=== PATIENT | female | born 1995 | race Caucasian/White ===

== ENCOUNTER 2018-03-10 17:05 | Emergency (ER) | payer OTHER ==
[~2018-03-10] VITALS: Ht 167.6 cm; Wt 88.9 kg
[2018-03-10 17:10] VITALS: BP 130/73
[2018-03-10] MEDS ORDERED: KETOROLAC 60 MG/2 ML INJ. IM ONE (17:15)
[2018-03-10] MEDS ORDERED: MELO7.5T5 PO (17:55)
--- NOTE | 2018-03-10 17:56 | PHYS DOC ---
Past Medical History Past Medical History: Arthritis Past Surgical History: No Surgical History Alcohol Use: None Drug Use: None Adult General Chief Complaint Chief Complaint: BACK PAIN - NO INJURY [facility] HPI Patient is a 23 year old female who presents with chronic back pain. The patient states that her back pain has been exacerbated for the past 3 days. She has not taken [id number] pain medications for this problem. She denies spontaneous loss of bowel or bladder, saddle numbness or foot drop. She denies any new injury. Review of Systems Review of Systems Constitutional: Denies fever or chills [] Respiratory: Denies cough or shortness of breath [] Cardiovascular: No additional information not addressed in HPI [] GI: Denies abdominal pain, nausea, vomiting, bloody stools or diarrhea [] : Denies dysuria or hematuria [] Musculoskeletal: See history of present illness Integument: Denies rash or skin lesions [] Neurologic: Denies headache, focal weakness or sensory changes [] Endocrine: Denies polyuria or polydipsia [] All other systems were reviewed and found to be within normal limits, except as documented in this note. Current Medications Current Medications Current Medications Medications (Trade) Dose Ordered Sig/Antonette Start Time Stop Time Status Last Admin Dose Admin Ketorolac Tromethamine (Toradol Im) 60 mg 1X ONCE 03/10/18 17:15 03/10/18 17:25 DC 03/10/18 17:39 60 MG Allergies Allergies Allergies Coded Allergies Type Severity Reaction Last Updated Verified Penicillins Allergy Unknown Rash 03/10/18 Yes cephalexin Allergy Unknown Rash 03/10/18 Yes codeine Allergy Unknown Unknown 03/10/18 Yes Physical Exam Physical Exam Constitutional: Well developed, well nourished, no acute distress, non-toxic appearance. [] Cardiovascular:Heart rate regular rhythm, no murmur [] Lungs & Thorax: Bilateral breath sounds clear to auscultation [] Abdomen: Bowel sounds normal, soft, no tenderness, no masses, no pulsatile masses. [] Skin: Warm, dry, no erythema, no rash. [] Back: No point spinal tenderness, gross deformities or step-offs noted, no CVA tenderness, positive for generalized lumbar tenderness. [] Extremities: No tenderness, no cyanosis, no clubbing, ROM intact, no edema. [] Neurologic: Alert and oriented X 3, normal motor function, normal sensory function, no focal deficits noted. [] Psychologic: Affect normal, judgement normal, mood normal. [] Current Patient Data Vital Signs Vital Signs Date Time Temp Pulse Resp B/P (MAP) Pulse Ox O2 Delivery O2 Flow Rate FiO2 03/10/18 17:10 98.8 88 18 130/73 (92) 99 Room Air 98.8 EKG EKG [] Radiology/Procedures Radiology/Procedures [] Course & Med Decision Making Course & Med Decision Making Pertinent Labs and Imaging studies reviewed. (See chart for details) [] Dragon Disclaimer Dragon Disclaimer This electronic medical record was generated, in whole or in part, using a voice recognition dictation system. Departure Departure Impression: Primary Impression: Back pain Disposition: HOME, SELF-CARE Condition: STABLE Referrals: NO PCP (PCP) Patient Instructions: Arthritis, Nonspecific, Chronic Back Pain Additional Instructions: Take the medication as directed. Follow-up with primary care for further management of your chronic back pain. If worsening return to the emergency department. Scripts Meloxicam (MOBIC) 7.5 Mg Tablet 1 TAB PO DAILY for back pain, #30 TAB 1 Refill Prov: RICHARD KAYE APRN 03/10/18 RICHARD KAYE APRN Mar 10, 2018 17:56
== END 2018-03-10 18:08 | disposition home or self-care (01) ==
LOC: ER 17:05
DX: G89.29 Other chronic pain (principal); M54.5 Low back pain; Z88.0 Allergy status to penicillin; Z88.1 Allergy status to other antibiotic agents; Z88.5 Allergy status to narcotic agent
CPT/HCPCS: 96372; 99283; J1885

== ENCOUNTER 2018-03-20 23:47 | Emergency (ER) | payer OTHER ==
[~2018-03-20] VITALS: Ht 167.6 cm; Wt 88.9 kg
[~2018-03-20 23:47] MED LIST: MELO7.5T5 PO
[2018-03-20 23:50] VITALS: BP 135/79
--- NOTE | 2018-03-21 00:13 | PHYS DOC ---
Past Medical History Past Medical History: Arthritis Additional Past Medical Histor: scoliosis Past Surgical History: No Surgical History Alcohol Use: None Drug Use: None Adult General Chief Complaint Chief Complaint: TOE PROBLEM HPI HPI Patient is a 23 year old female who presents with 9 out of 10 left second toe pain that began today after she hyperflexed to the toe playing with son. Patient describes the pain as sharp and worse on range of motion. Review of Systems Review of Systems Constitutional: Denies fever or chills [] Musculoskeletal: Left second toe pain Integument: Denies rash or skin lesions [] Neurologic: Denies headache, focal weakness or sensory changes [] All other systems were reviewed and found to be within normal limits, except as documented in this note. Allergies Allergies Allergies Coded Allergies Type Severity Reaction Last Updated Verified Penicillins Allergy Unknown Rash 03/10/18 Yes cephalexin Allergy Unknown Rash 03/10/18 Yes codeine Allergy Unknown Unknown 03/10/18 Yes Physical Exam Physical Exam Constitutional: Well developed, well nourished, no acute distress, non-toxic appearance. [] Skin: Warm, dry, no erythema, no rash. [] Back: No tenderness, no CVA tenderness. [] Extremities: Left second toe with no obvious deformity. No erythema. No bruising. Tenderness diffusely throughout the toe. Full passive range of motion to the left second toe. +2 left pedal pulse. Cap refill less than 2 seconds left toes Neurologic: Alert and oriented X 3, normal motor function, normal sensory function, no focal deficits noted. [] Psychologic: Affect normal, judgement normal, mood normal. [] Current Patient Data Vital Signs Vital Signs Date Time Temp Pulse Resp B/P (MAP) Pulse Ox O2 Delivery O2 Flow Rate FiO2 03/20/18 23:50 98.1 96 16 135/79 (97) 98 Room Air 98.1 EKG EKG [] Radiology/Procedures Radiology/Procedures [] Course & Med Decision Making Course & Med Decision Making Pertinent Labs and Imaging studies reviewed. (See chart for details) This is a 23-year-old female patient presenting to the ED today with left second toe pain that began after she hyperflexed her toe playing, left foot x- rays interpreted by Dr. March are negative for any acute findings. Ice elevation encouraged. OTC pain relievers.Follow-up with Ortho as needed. Dragon Disclaimer Dragon Disclaimer This electronic medical record was generated, in whole or in part, using a voice recognition dictation system. Departure Departure Impression: Primary Impression: Sprain of toe, second, left Disposition: 01 HOME, SELF-CARE Condition: STABLE Referrals: NO PCP (PCP) GENA WHALEN MD follow up in 1 week Patient Instructions: Joint Sprain Additional Instructions: You were evaluated in the emergency room for left toe sprain. Ice and elevate the extremity. Take [id number] pain relievers as needed for pain. Follow- up with the provided orthopedic doctor or your own doctor in 1-2 weeks as needed. Problem Qualifiers Primary Impression: Sprain of toe, second, left Encounter type: initial encounter Qualified Codes: S93.505A - Unspecified sprain of left lesser toe(s), initial encounter DEANGELO EVANS APRN Mar 21, 2018 00:13
--- NOTE | 2018-03-21 07:50 | RAD ---
3 view study of the left foot Clinical indications: Second toe pain after injury. FINDINGS: No acute fracture or dislocation or osteolytic process is evident. IMPRESSION: No acute fracture. Electronically signed by: Hugo Hanson MD (03/21/2018 7:46 AM) [facility]
== END 2018-03-21 00:31 | disposition home or self-care (01) ==
LOC: ER 23:47
DX: S93.505A Unspecified sprain of left lesser toe(s), initial encounter (principal); Z88.0 Allergy status to penicillin; Z88.1 Allergy status to other antibiotic agents; Z88.5 Allergy status to narcotic agent; X50.9XXA Other and unspecified overexertion or strenuous movements or postures, initial encounter; Y93.89 Activity, other specified; Y92.89 Other specified places as the place of occurrence of the external cause; Y99.8 Other external cause status
CPT/HCPCS: 73630; 99283

== ENCOUNTER 2018-03-27 18:05 | Emergency (ER) | payer OTHER ==
[~2018-03-27] VITALS: Ht 167.6 cm; Wt 88.9 kg
[2018-03-27 19:45] LABS: BILIRUBIN,URINE NEGATIVE (NEG); CLARITY,URINE CLEAR; COLOR,URINE YELLOW; NITRITE,URINE NEGATIVE (NEG); PH,URINE 6.5; PROTEIN,URINE NEGATIVE (NEG-TRACE)
[2018-03-27 20:00] LABS: BACTERIA,URINE MANY /HPF (0-FEW); RBC,URINE 0 /HPF (0-2); SQUAMOUS EPITHELIAL CELL,UR MOD /LPF
--- NOTE | 2018-03-27 21:57 | RAD ---
Examination: PELVIS COMPLETE History: PELVIC PAIN Comparison/Correlation: None Findings: Transabdominal pelvic ultrasound exam was performed. Transvaginal technique was also performed to better assess the adnexal structures. Uterus measures 9.17 x 4.5 cm x 4 cm. Endometrial thickness is 1 cm. Myometrium is unremarkable. Right ovary measures 2.19 x 1.5 cm x 1.4 cm. Left ovary measures 2.17 x 2.1 cm x 2 cm. Ovarian flow is identified bilaterally on spectral Doppler imaging. Ovarian follicles bilaterally are present. Left adnexal cystic structure measuring 1.8 cm x 1.18 x 1.5 cm is present with minimal flow about its on color Doppler imaging. Right ovarian echogenic structure measuring 0.5 cm diameter is present. This may represent nonspecific calcification or other benign process. No pelvic free fluid. Impression: Left adnexal involuting cyst is suspected. No definite suspicious mass lesion. No evidence of ovarian torsion. Electronically signed by: Cilnt Wick MD (03/27/2018 9:53 PM) [facility]
[2018-03-27 22:30] VITALS: BP 115/73
--- NOTE | 2018-03-27 22:50 | PHYS DOC ---
Past Medical History Past Medical History: Arthritis, Other Additional Past Medical Histor: scoliosis Past Surgical History: No Surgical History Additional Information: 2cigs./day Alcohol Use: None Drug Use: None Adult General Chief Complaint Chief Complaint: ABDOMINAL PAIN HPI HPI Patient is a 23 year old female who presents with mild bilateral pelvic pain worse on the left side that began today. Denies any chance she is , denies any unusual vaginal discharge, denies any urgency frequency or dysuria. Denies any fever. Review of Systems Review of Systems Constitutional: Denies fever or chills [] Eyes: Denies change in visual acuity, redness, or eye pain [] HENT: Denies nasal congestion or sore throat [] Respiratory: Denies cough or shortness of breath [] Cardiovascular: No additional information not addressed in HPI [] GI: Reports pelvic pain worse on the left side, denies nausea, vomiting, bloody stools or diarrhea [] : Denies dysuria or hematuria [] Musculoskeletal: Denies back pain or joint pain [] Integument: Denies rash or skin lesions [] Neurologic: Denies headache, focal weakness or sensory changes [] All other systems were reviewed and found to be within normal limits, except as documented in this note. Allergies Allergies Allergies Coded Allergies Type Severity Reaction Last Updated Verified Penicillins Allergy Unknown Rash 03/10/18 Yes cephalexin Allergy Unknown Rash 03/10/18 Yes codeine Allergy Unknown Unknown 03/10/18 Yes Physical Exam Physical Exam Constitutional: Well developed, well nourished, no acute distress, non-toxic appearance. [] HENT: Normocephalic, atraumatic, bilateral external ears normal, oropharynx moist, no oral exudates, nose normal. [] Eyes: PERRLA, EOMI, conjunctiva normal, no discharge. [] Neck: Normal range of motion, no tenderness, supple, no stridor. [] Cardiovascular:Heart rate regular rhythm, no murmur [] Lungs & Thorax: Bilateral breath sounds clear to auscultation [] Abdomen: Bowel sounds normal, soft, no tenderness, no masses, no pulsatile masses. [] Skin: Warm, dry, no erythema, no rash. [] Back: No tenderness, no CVA tenderness. [] Extremities: No tenderness, no cyanosis, no clubbing, ROM intact, no edema. [] Neurologic: Alert and oriented X 3, normal motor function, normal sensory function, no focal deficits noted. [] Psychologic: Affect normal, judgement normal, mood normal. [] Current Patient Data Vital Signs Vital Signs Date Time Temp Pulse Resp B/P (MAP) Pulse Ox O2 Delivery O2 Flow Rate FiO2 03/27/18 22:30 88 18 115/73 (87) 99 03/27/18 18:50 98.3 Room Air 98.3 Lab Values Laboratory Tests Test 03/27/18 18:50 03/27/18 19:38 Urine Collection Type Unknown Urine Color Yellow Urine Clarity Clear Urine pH 6.5 Urine Specific [place] >=1.030 Urine Protein Negative mg/dL (NEG-TRACE) Urine Glucose (UA) Negative mg/dL (NEG) Urine Ketones (Stick) Negative mg/dL (NEG) Urine Blood Negative (NEG) Urine Nitrite Negative (NEG) Urine Bilirubin Negative (NEG) Urine Urobilinogen Dipstick 1.0 mg/dL (0.2 mg/dL) Urine Leukocyte Esterase Negative (NEG) Urine RBC 0 /HPF (0-2) Urine WBC 1-4 /HPF (0-4) Urine Squamous Epithelial Cells Mod /LPF Urine Bacteria Many /HPF (0-FEW) Urine Mucus Mod /LPF POC Urine HCG, Qualitative Hcg negative (Negative) EKG EKG [] Radiology/Procedures Radiology/Procedures []PROCEDURE: PELVIS COMPLETE Examination: PELVIS COMPLETE History: PELVIC PAIN Comparison/Correlation: None Findings: Transabdominal pelvic ultrasound exam was performed. Transvaginal technique was also performed to better assess the adnexal structures. Uterus measures 9.17 x 4.5 cm x 4 cm. Endometrial thickness is 1 cm. Myometrium is unremarkable. Right ovary measures 2.19 x 1.5 cm x 1.4 cm. Left ovary measures 2.17 x 2.1 cm x 2 cm. Ovarian flow is identified bilaterally on spectral Doppler imaging. Ovarian follicles bilaterally are present. Left adnexal cystic structure measuring 1.8 cm x 1.18 x 1.5 cm is present with minimal flow about its on color Doppler imaging. Right ovarian echogenic structure measuring 0.5 cm diameter is present. This may represent nonspecific calcification or other benign process. No pelvic free fluid. Impression: Left adnexal involuting cyst is suspected. No definite suspicious mass lesion. No evidence of ovarian torsion. Electronically signed by: Clint Wick MD (03/27/2018 9:53 PM) [facility] DICTATED and SIGNED BY: ZULEIMA JAMA MD DATE: 03/27/182149 Course & Med Decision Making Course & Med Decision Making Pertinent Labs and Imaging studies reviewed. (See chart for details) This is a 23-year-old female patient presented to the ED today with pelvic pain worse on the left side that began today. 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 OTC pain relievers recommended. Dragon Disclaimer Dragon Disclaimer This electronic medical record was generated, in whole or in part, using a voice recognition dictation system. Departure Departure Impression: Primary Impression: Ovarian cyst Additional Impression: Pelvic pain Disposition: HOME, SELF-CARE Condition: STABLE Referrals: NO PCP (PCP) VARUN AQUINO MD follow up in one week Patient Instructions: Ovarian Cyst, [id number], Pelvic Pain, Female Additional Instructions: You were evaluated in the emergency room for pelvic pain and noted to have left ovarian cyst. Follow-up with your [employer]AT [employer]CH[employer]IC or the provided one in one week. Take [id number] Tylenol or Motrin as needed for pain. Problem Qualifiers Primary Impression: Ovarian cyst Laterality: left Qualified Codes: N83.202 - Unspecified ovarian cyst, left side DEANGELO EVANS [employer]IOTELEPHONE TECHNICAL OPERATOR Mar 27, 2018 22:50
== END 2018-03-27 23:05 | disposition home or self-care (01) ==
LOC: ER 18:05
DX: N83.202 Unspecified ovarian cyst, left side (principal); M19.90 Unspecified osteoarthritis, unspecified site; F17.210 Nicotine dependence, cigarettes, uncomplicated; Z88.0 Allergy status to penicillin; Z88.1 Allergy status to other antibiotic agents; Z88.5 Allergy status to narcotic agent
CPT/HCPCS: 76856; 81001; 81025; 87086; 87186; 99284

== ENCOUNTER 2018-04-17 19:07 | Emergency (ER) | payer OTHER ==
[~2018-04-17] VITALS: Ht 167.6 cm; Wt 88.9 kg
[2018-04-17 19:45] VITALS: BP 133/94
[2018-04-17 20:58] LABS: BILIRUBIN,URINE NEGATIVE (NEG); CLARITY,URINE CLEAR; COLOR,URINE YELLOW; NITRITE,URINE NEGATIVE (NEG); PH,URINE 6.5; PROTEIN,URINE NEGATIVE (NEG-TRACE)
[2018-04-17 21:23] LABS: BACTERIA,URINE MANY /HPF (0-FEW); SQUAMOUS EPITHELIAL CELL,UR FEW /LPF; WBC,URINE 20-40 /HPF (0-4)
[2018-04-17] MEDS ORDERED: PHEN-318 PO (21:43)
[2018-04-17] MEDS ORDERED: SULF1TAB24 PO (21:43)
[2018-04-17] MEDS ORDERED: SMZ/TMP 800/160MG TABLET. PO ONE (22:00)
[2018-04-17] MEDS ORDERED: PHENAZOPYRIDINE 200 MG TABLET. PO ONE (22:00)
--- NOTE | 2018-04-18 21:12 | PHYS DOC ---
Past Medical History Past Medical History: Arthritis, Other Additional Past Medical Histor: scoliosis Past Surgical History: No Surgical History Alcohol Use: None Drug Use: None Adult General Chief Complaint Chief Complaint: BACK PAIN OR INJURY HPI HPI Patient is a 23 year old male who presents with diffuse lower back pain, dysuria. Symptom onset was yesterday. Pain is nonradiating not worse with palpation and movement. No medications or therapy sticking prior to ED arrival. No fever chills, vomiting or sweats. No hematuria. Denies history of kidney stones. [] Review of Systems Review of Systems His symptoms as per history of present illness. All other review symptoms are negative. All other systems were reviewed and found to be within normal limits, except as documented in this note. Current Medications Current Medications Current Medications Medications (Trade) Dose Ordered Sig/Antonette Start Time Stop Time Status Last Admin Dose Admin Phenazopyridine HCl (Pyridium) 200 mg 1X ONCE 04/17/18 22:00 04/17/18 22:00 DC 04/17/18 21:57 200 MG Trimethoprim/ Sulfamethoxazole (Bactrim Ds) 1 tab 1X ONCE 04/17/18 22:00 04/17/18 22:00 DC 04/17/18 21:57 1 TAB Allergies Allergies Allergies Coded Allergies Type Severity Reaction Last Updated Verified Penicillins Allergy Intermediate Rash 04/17/18 Yes cephalexin Allergy Intermediate Rash 04/17/18 Yes codeine Allergy Intermediate 04/17/18 Yes Physical Exam Physical Exam Constitutional: Well developed, well nourished, no acute distress, sitting upright crosslegged in bed. [] HENT: Normocephalic, atraumatic, bilateral external ears normal, oropharynx moist, no oral exudates, nose normal. [] Eyes: PERRLA,() Cardiovascular:Heart rate regular rhythm, no murmur [] Lungs & Thorax: Bilateral breath sounds clear to auscultation [] Abdomen: Bowel sounds normal, soft, suprapubic pain, no redness. [] Skin: Warm, dry, no erythema, no rash. [] Back: Diffuse low back pain, tenderness, pain reproduces palpation and movement.No CVA tenderness. [] Extremities: No tenderness, no edema. [] Neurologic: Alert and oriented X 3, normal motor function, normal sensory function, no focal deficits noted. [] Psychologic: Affect normal, judgement normal, mood normal. [] Current Patient Data Vital Signs Vital Signs Date Time Temp Pulse Resp B/P (MAP) Pulse Ox O2 Delivery O2 Flow Rate FiO2 04/17/18 19:45 97.7 93 20 133/94 (107) 97 Room Air 97.7 Lab Values Laboratory Tests Test 04/17/18 20:36 04/17/18 20:45 Urine Collection Type Unknown Urine Color Yellow Urine Clarity Clear Urine pH 6.5 Urine Specific [place] 1.015 Urine Protein Negative mg/dL (NEG-TRACE) Urine Glucose (UA) Negative mg/dL (NEG) Urine Ketones (Stick) Negative mg/dL (NEG) Urine Blood Negative (NEG) Urine Nitrite Negative (NEG) Urine Bilirubin Negative (NEG) Urine Urobilinogen Dipstick 1.0 mg/dL (0.2 mg/dL) Urine Leukocyte Esterase Moderate (NEG) Urine RBC 3-5 /HPF (0-2) Urine WBC 20-40 /HPF (0-4) Urine Squamous Epithelial Cells Few /LPF Urine Bacteria Many /HPF (0-FEW) Urine Mucus Marked /LPF POC Urine HCG, Qualitative Hcg negative (Negative) EKG EKG [] Radiology/Procedures Radiology/Procedures [] Course & Med Decision Making Course & Med Decision Making Pertinent Labs and Imaging studies reviewed. (See chart for details) [Back pain with urinary tract infection. No systemic symptoms. Will treat empirically with PCP follow-up.] Dragon Disclaimer Dragon Disclaimer This electronic medical record was generated, in whole or in part, using a voice recognition dictation system. Departure Departure Impression: Primary Impression: Urinary tract infection Additional Impression: Back pain Disposition: 01 HOME, SELF-CARE Condition: GOOD Patient Instructions: Urinary Tract Infection, [id number], Back Pain, Adult, [id number] Additional Instructions: Please increase fluids, take Tylenol and Pyridium for pain and antibiotics as directed. Follow-up with your PCP in 2-3 days for urine culture result. Return to the ED if new or worsening symptoms. Scripts Phenazopyridine Hcl (PYRIDIUM) 200 Mg Tablet 200 MG PO TID for 3 Days, #9 TAB Prov: CLEVELAND RED DO 04/17/18 Sulfamethoxazole/Trimethoprim (BACTRIM DS TABLET) 1 Each Tablet 1 TAB PO BID, #14 TAB Prov: CLEVELAND RED DO 04/17/18 Problem Qualifiers CLEVELAND RED DO Apr 18, 2018 21:12
== END 2018-04-17 21:58 | disposition home or self-care (01) ==
LOC: ER 19:07
DX: N39.0 Urinary tract infection, site not specified (principal); Z88.0 Allergy status to penicillin; Z88.1 Allergy status to other antibiotic agents; Z88.5 Allergy status to narcotic agent
CPT/HCPCS: 81001; 81025; 87086; 99283

== ENCOUNTER 2019-06-04 16:15 | Emergency (ER) | payer MEDICAID, OTHER ==
[~2019-06-04] VITALS: Ht 165.1 cm; Wt 89.0 kg
[~2019-06-04 16:15] MED LIST changes: +PHEN-318 PO; +SULF1TAB24 PO
[2019-06-04 17:43] VITALS: BP 133/60
[2019-06-04] MEDS ORDERED: MORPHINE SULFATE 10 MG/ML VIAL. IV STA (18:01)
[2019-06-04] MEDS ORDERED: IV NORMAL SALINE 1000ML BAG 1,000 ML IV ONE (18:15)
[2019-06-04] MEDS ORDERED: ONDANSETRON PF 4 MG/2 ML VIAL. IV ONE (18:15)
--- NOTE | 2019-06-04 18:16 | PHYS DOC ---
Past Medical History Past Medical History: Arthritis, Other Additional Past Medical Histor: scoliosis (NELIDA ADAMS APRN) Past Surgical History: No Surgical History (NELIDA ADAMS APRN) Smoking Status: Current Every Day Smoker Alcohol Use: None Drug Use: None (NELIDA ADAMS APRN) Attending Signature I have participated in the care of this patient and I have reviewed and agree with all pertinent clinical information above including history, exam, and recommendations. (TITO HADDAD MD) Adult General Chief Complaint Chief Complaint: RIB PAIN HPI HPI Patient is a 24 year old female who presents with upper abdominal pain that has been ongoing since this morning. The patient states she gets nausea when she presses on her abdomen. Denies fever or any other symptoms. She rates her pain as moderate in severity. Complete ROS were reviewed and found to be within normal limits, except as do cumented in the HPI (NELIDA ADAMS APRN) Current Medications Current Medications Current Medications Medications (Trade) Dose Ordered Sig/Antonette Start Time Stop Time Status Last Admin Dose Admin Info (CONTRAST GIVEN -- Rx MONITORING) 1 each PRN DAILY PRN 06/04/19 19:30 06/04/19 20:49 DC Iohexol (Omnipaque 300 Mg/ml) 100 ml 1X ONCE 06/04/19 19:30 06/04/19 19:31 DC 06/04/19 19:33 100 ML Morphine Sulfate (Morphine Sulfate) 5 mg 1X STAT 06/04/19 18:01 06/04/19 18:05 DC 06/04/19 20:34 5 MG Ondansetron HCl (Zofran) 4 mg 1X ONCE 06/04/19 18:15 06/04/19 18:16 DC Sodium Chloride 1,000 ml @ 1,000 mls/hr 1X ONCE 06/04/19 18:15 06/04/19 19:14 DC (TITO HADDAD MD) Allergies Allergies Allergies Coded Allergies Type Severity Reaction Last Updated Verified Penicillins Allergy Intermediate Rash 04/17/18 Yes cephalexin Allergy Intermediate Rash 04/17/18 Yes codeine Allergy Intermediate 04/17/18 Yes (TITO HADDAD MD) Physical Exam Physical Exam Constitutional: Well developed, well nourished, no acute distress, non-toxic appearance. [] HENT: Normocephalic, atraumatic, bilateral external ears normal, oropharynx moist, no oral exudates, nose normal. [] Eyes: PERRLA, EOMI, conjunctiva normal, no discharge. [] Neck: Normal range of motion, no tenderness, supple, no stridor. [] Cardiovascular:Heart rate regular rhythm, no murmur [] Lungs & Thorax: Bilateral breath sounds clear to auscultation [] Abdomen: Bowel sounds normal, soft, diffuse upper abdominal tenderness, no masses, no pulsatile masses. [] Skin: Warm, dry, no erythema, no rash. [] Back: No tenderness, no CVA tenderness. [] Extremities: No tenderness, no cyanosis, no clubbing, ROM intact, no edema. [] Neurologic: Alert and oriented X 3, normal motor function, normal sensory function, no focal deficits noted. [] Psychologic: Affect normal, judgement normal, mood normal. [] (NELIDA ADAMS APRN) Current Patient Data Vital Signs Vital Signs Date Time Temp Pulse Resp B/P (MAP) Pulse Ox O2 Delivery O2 Flow Rate FiO2 06/04/19 20:34 16 99 Room Air 06/04/19 17:43 98.1 96 133/60 (84) 98.1 (TITO HADDAD MD) Lab Values Laboratory Tests Test 06/04/19 18:20 06/04/19 18:23 06/04/19 18:32 Urine Collection Type Unknown Urine Color Yellow Urine Clarity Clear Urine pH 5.0 Urine Specific Wesley >=1.030 Urine Protein Negative mg/dL (NEG-TRACE) Urine Glucose (UA) Negative mg/dL (NEG) Urine Ketones (Stick) Negative mg/dL (NEG) Urine Blood Negative (NEG) Urine Nitrite Negative (NEG) Urine Bilirubin Negative (NEG) Urine Urobilinogen Dipstick 0.2 mg/dL (0.2 mg/dL) Urine Leukocyte Esterase Small (NEG) Urine RBC 1-2 /HPF (0-2) Urine WBC 5-10 /HPF (0-4) Urine Squamous Epithelial Cells Mod /LPF Urine Bacteria Few /HPF (0-FEW) Urine Mucus Marked /LPF POC Urine HCG, Qualitative Hcg negative (Negative) White Blood Count 6.7 x10^3/uL (4.0-11.0) Red Blood Count 4.36 x10^6/uL (3.50-5.40) Hemoglobin 13.3 g/dL (12.0-15.5) Hematocrit 38.9 % (36.0-47.0) Mean Corpuscular Volume 89 fL (79-100) Mean Corpuscular Hemoglobin 30 pg (25-35) Mean Corpuscular Hemoglobin Concent 34 g/dL (31-37) Red Cell Distribution Width 13.2 % (11.5-14.5) Platelet Count 242 x10^3/uL (140-400) Neutrophils (%) (Auto) 64 % (31-73) Lymphocytes (%) (Auto) 27 % (24-48) Monocytes (%) (Auto) 6 % (0-9) Eosinophils (%) (Auto) 2 % (0-3) Basophils (%) (Auto) 0 % (0-3) Neutrophils # (Auto) 4.3 x10^3/uL (1.8-7.7) Lymphocytes # (Auto) 1.8 x10^3/uL (1.0-4.8) Monocytes # (Auto) 0.4 x10^3/uL (0.0-1.1) Eosinophils # (Auto) 0.1 x10^3/uL (0.0-0.7) Basophils # (Auto) 0.0 x10^3/uL (0.0-0.2) Sodium Level 141 mmol/L (136-145) Potassium Level 3.6 mmol/L (3.5-5.1) Chloride Level 104 mmol/L (98-107) Carbon Dioxide Level 27 mmol/L (21-32) Anion Gap 10 (6-14) Blood Urea Nitrogen 9 mg/dL (7-20) Creatinine 0.6 mg/dL (0.6-1.0) Estimated GFR (Cockcroft-Gault) 121.8 BUN/Creatinine Ratio 15 (6-20) Glucose Level 101 mg/dL (70-99) H Calcium Level 9.5 mg/dL (8.5-10.1) Total Bilirubin 0.3 mg/dL (0.2-1.0) Aspartate Amino Transferase (AST) 12 U/L (15-37) L Alanine Aminotransferase (ALT) 14 U/L (14-59) Alkaline Phosphatase 86 U/L (46-116) Total Protein 7.3 g/dL (6.4-8.2) Albumin 4.0 g/dL (3.4-5.0) Albumin/Globulin Ratio 1.2 (1.0-1.7) Lipase 152 U/L (73-393) Laboratory Tests 06/04/19 18:32 Laboratory Tests 06/04/19 18:32 (TITO HADDAD MD) Lab Values Laboratory Tests Test 06/04/19 18:20 06/04/19 18:23 06/04/19 18:32 Urine Collection Type Unknown Urine Color Yellow Urine Clarity Clear Urine pH 5.0 Urine Specific Wesley >=1.030 Urine Protein Negative mg/dL (NEG-TRACE) Urine Glucose (UA) Negative mg/dL (NEG) Urine Ketones (Stick) Negative mg/dL (NEG) Urine Blood Negative (NEG) Urine Nitrite Negative (NEG) Urine Bilirubin Negative (NEG) Urine Urobilinogen Dipstick 0.2 mg/dL (0.2 mg/dL) Urine Leukocyte Esterase Small (NEG) Urine RBC 1-2 /HPF (0-2) Urine WBC 5-10 /HPF (0-4) Urine Squamous Epithelial Cells Mod /LPF Urine Bacteria Few /HPF (0-FEW) Urine Mucus Marked /LPF POC Urine HCG, Qualitative Hcg negative (Negative) White Blood Count 6.7 x10^3/uL (4.0-11.0) Red Blood Count 4.36 x10^6/uL (3.50-5.40) Hemoglobin 13.3 g/dL (12.0-15.5) Hematocrit 38.9 % (36.0-47.0) Mean Corpuscular Volume 89 fL (79-100) Mean Corpuscular Hemoglobin 30 pg (25-35) Mean Corpuscular Hemoglobin Concent 34 g/dL (31-37) Red Cell Distribution Width 13.2 % (11.5-14.5) Platelet Count 242 x10^3/uL (140-400) Neutrophils (%) (Auto) 64 % (31-73) Lymphocytes (%) (Auto) 27 % (24-48) Monocytes (%) (Auto) 6 % (0-9) Eosinophils (%) (Auto) 2 % (0-3) Basophils (%) (Auto) 0 % (0-3) Neutrophils # (Auto) 4.3 x10^3/uL (1.8-7.7) Lymphocytes # (Auto) 1.8 x10^3/uL (1.0-4.8) Monocytes # (Auto) 0.4 x10^3/uL (0.0-1.1) Eosinophils # (Auto) 0.1 x10^3/uL (0.0-0.7) Basophils # (Auto) 0.0 x10^3/uL (0.0-0.2) Sodium Level 141 mmol/L (136-145) Potassium Level 3.6 mmol/L (3.5-5.1) Chloride Level 104 mmol/L (98-107) Carbon Dioxide Level 27 mmol/L (21-32) Anion Gap 10 (6-14) Blood Urea Nitrogen 9 mg/dL (7-20) Creatinine 0.6 mg/dL (0.6-1.0) Estimated GFR (Cockcroft-Gault) 121.8 BUN/Creatinine Ratio 15 (6-20) Glucose Level 101 mg/dL (70-99) H Calcium Level 9.5 mg/dL (8.5-10.1) Total Bilirubin 0.3 mg/dL (0.2-1.0) Aspartate Amino Transferase (AST) 12 U/L (15-37) L Alanine Aminotransferase (ALT) 14 U/L (14-59) Alkaline Phosphatase 86 U/L (46-116) Total Protein 7.3 g/dL (6.4-8.2) Albumin 4.0 g/dL (3.4-5.0) Albumin/Globulin Ratio 1.2 (1.0-1.7) Lipase 152 U/L (73-393) Laboratory Tests 06/04/19 18:32 Laboratory Tests 06/04/19 18:32 (NELIDA ADAMS APRN) EKG EKG [] (NELIDA ADAMS APRN) Radiology/Procedures Radiology/Procedures [][facility] [address] [place] [address] IMAGING REPORT Signed PATIENT: REINA AVITIA ACCOUNT: [id number] : 1995 LOCATION: ER AGE: 24 SEX: F EXAM STATUS: REG ER ORD. PHYSICIAN: NELIDA ADAMS APRN REASON: upper abd pain diffusely PROCEDURE: CT ABD PELV W/ IV CONTRST ONLY Examination: CT of the abdomen pelvis with IV contrast HISTORY: History of upper abdominal pain COMPARISON: None available TECHNIQUE: Axial CT was performed with IV contrast. Coronal and sagittal reformats are performed. Exposure: One or more of the following individualized dose reduction techniques were utilized for this examination: 1. Automated exposure control 2. Adjustment of the mA and/or kV according to patient size 3. Use of iterative reconstruction technique. FINDINGS: Minimal bibasilar lung atelectasis. No evidence of free air identified in the abdomen.The liver, spleen, adrenals grossly appears unremarkable. Gallbladder is mildly distended. The stomach is mildly distended with visualized pancreas grossly appears unremarkable the small bowel is nondilated. The appendix is normal. Feces and gas noted in the colon Urinary bladder is mildly distended. Bilateral kidneys enhance symmetrically. No evidence of lytic bony destructive lesion. IMPRESSION: No acute intra-abdominal findings. Electronically signed by: Minh East MD (06/04/2019 8:00 PM) [id number] DICTATED and SIGNED BY: MINH EAST MD DATE: 06/04/191999 (NELIDA ADAMS APRN) Course & Med Decision Making Course & Med Decision Making Pertinent Labs and Imaging studies reviewed. (See chart for details) Will get labs, CT, and give supportive medications. CT and labs are unremarkable. Will discharge home with zofran. (NELIDA ADAMS APRN) Dragon Disclaimer Dragon Disclaimer This electronic medical record was generated, in whole or in part, using a voice recognition dictation system. (NELIDA ADAMS APRN) Departure Departure Impression: Primary Impression: Abdominal pain Disposition: HOME, SELF-CARE Condition: STABLE Referrals: NO PCP (PCP) Patient Instructions: Abdominal Pain (Nonspecific) Additional Instructions: Thank you for visiting [facility]. We appreciate you trusting us with your care. If any additional problems come up don't hesitate to return to visit us. Please follow up with your primary care provider so they can plan additional care if needed and know about the problem that you had. If symptoms worsen come back to the Emergency Department. Any concerning symptoms that start such as chest pain, shortness of air, weakness or numbness on one side of the body, running high fevers or any other concerning symptoms return to the ER. Scripts Ondansetron (ONDANSETRON ODT) 4 Mg Tab.rapdis 1 TAB PO PRN Q6-8HRS PRN for NAUSEA, #20 TAB Prov: NELIDA ADAMS APRN 06/04/19 Problem Qualifiers Primary Impression: Abdominal pain Abdominal location: upper abdomen, unspecified Qualified Codes: R10.10 - Upper abdominal pain, unspecified NELIDA ADAMS APRN Jun 04, 2019 18:16 TITO HADDAD MD Jun 05, 2019 01:28
[2019-06-04 18:31] LABS: BILIRUBIN,URINE NEGATIVE (NEG); CLARITY,URINE CLEAR; COLOR,URINE YELLOW; NITRITE,URINE NEGATIVE (NEG); PROTEIN,URINE NEGATIVE (NEG-TRACE); UROBILINOGEN,URINE 0.2 mg/dL (0.2 mg/dL)
[2019-06-04 18:40] LABS: BASO % 0 % (0-3); EOS # 0.1 x10^3/uL (0.0-0.7); EOS % 2 % (0-3); HEMATOCRIT 38.9 % (36.0-47.0); HEMOGLOBIN 13.3 g/dL (12.0-15.5); LYMPH # 1.8 x10^3/uL (1.0-4.8); LYMPH % 27 % (24-48); MEAN CORPUSCULAR HEMOGLOBIN 30 pg (25-35); MEAN CORPUSCULAR HGB CONC 34 g/dL (31-37); MEAN CORPUSCULAR VOLUME 89 fL (79-100); MONO # 0.4 x10^3/uL (0.0-1.1); MONO % 6 % (0-9); NEUT # 4.3 x10^3/uL (1.8-7.7); NEUT % 64 % (31-73); PLATELET COUNT 242 x10^3/uL (140-400); RED BLOOD COUNT 4.36 x10^6/uL (3.50-5.40); RED CELL DISTRIBUTION WIDTH 13.2 % (11.5-14.5); WHITE BLOOD COUNT 6.7 x10^3/uL (4.0-11.0)
[2019-06-04 18:49] LABS: BACTERIA,URINE FEW /HPF (0-FEW); SQUAMOUS EPITHELIAL CELL,UR MOD /LPF
[2019-06-04 18:59] LABS: CALCIUM 9.5 mg/dL (8.5-10.1); CREATININE 0.6 mg/dL (0.6-1.0); GFR 121.8; POTASSIUM 3.6 mmol/L (3.5-5.1)
[2019-06-04 19:10] LABS: ALBUMIN/GLOBULIN RATIO 1.2 (1.0-1.7); TOTAL BILIRUBIN 0.3 mg/dL (0.2-1.0); TOTAL PROTEIN 7.3 g/dL (6.4-8.2)
[2019-06-04] MEDS ORDERED: IOHEXOL 300 MG/ML 100ML VIAL. IV ONE (19:30)
[2019-06-04] MEDS ORDERED: CONTRAST GIVEN. MC PRN (19:30)
--- NOTE | 2019-06-04 20:03 | RAD ---
Examination: CT of the abdomen pelvis with IV contrast HISTORY: History of upper abdominal pain COMPARISON: None available TECHNIQUE: Axial CT was performed with IV contrast. Coronal and sagittal reformats are performed. Exposure: One or more of the following individualized dose reduction techniques were utilized for this examination: 1. Automated exposure control 2. Adjustment of the mA and/or kV according to patient size 3. Use of iterative reconstruction technique. FINDINGS: Minimal bibasilar lung atelectasis. No evidence of free air identified in the abdomen.The liver, spleen, adrenals grossly appears unremarkable. Gallbladder is mildly distended. The stomach is mildly distended with visualized pancreas grossly appears unremarkable the small bowel is nondilated. The appendix is normal. Feces and gas noted in the colon Urinary bladder is mildly distended. Bilateral kidneys enhance symmetrically. No evidence of lytic bony destructive lesion. IMPRESSION: No acute intra-abdominal findings. Electronically signed by: Minh East MD (06/04/2019 8:00 PM) [id number]
[2019-06-04] MEDS ORDERED: ONDA4TAB12 PO (20:14)
== END 2019-06-04 20:49 | disposition home or self-care (01) ==
LOC: ER 16:15
DX: R10.84 Generalized abdominal pain (principal); F17.200 Nicotine dependence, unspecified, uncomplicated; Z88.0 Allergy status to penicillin; Z88.1 Allergy status to other antibiotic agents; Z88.5 Allergy status to narcotic agent
CPT/HCPCS: 36415; 74177; 80053; 81001; 81025; 83690; 85025; 87086; 96374; 99285; J2270; Q9967

== ENCOUNTER 2019-08-17 18:09 | Emergency (ER) | payer MEDICAID ==
[~2019-08-17] VITALS: Ht 165.1 cm; Wt 88.6 kg
[~2019-08-17 18:09] MED LIST changes: +ONDA4TAB12 PO
[2019-08-17 18:25] VITALS: BP 149/84
--- NOTE | 2019-08-17 18:44 | PHYS DOC ---
Past Medical History Past Medical History: Arthritis, Other Additional Past Medical Histor: scoliosis Past Surgical History: No Surgical History Smoking Status: Current Every Day Smoker Alcohol Use: None Drug Use: None General Adult EDM: Chief Complaint: HEADACHE HPI: HPI: Patient is a 24 year old female who presents with complaint of migraine headache that started yesterday. Patient also complains of lower back pain, primarily on the right-hand side. She denies any fever, abdominal pain or urinary discomfort. Patient does indicate that she has some photophobia and did have some nausea last night but did not vomit. She rates pain is moderate. She states that nothing is improving her pain even after having taken 800 of ibuprofen. [] Review of Systems: Review of Systems: Constitutional: Denies fever or chills. [] Eyes: Denies change in visual acuity. [] Respiratory: Denies cough or shortness of breath. [] Cardiovascular: Denies chest pain or edema. [] Musculoskeletal: Complains of lower back pain. [] Neurologic: Complains of headache without focal weakness or sensory changes. [] Heart Score: Risk Factors: Risk Factors: DM, Current or recent (<one month) smoker, HTN, HLP, family history of CAD, obesity. Risk Scores: Score 0 - 3: 2.5% MACE over next 6 weeks - Discharge Home Score 4 - 6: 20.3% MACE over next 6 weeks - Admit for Clinical Observation Score 7 - 10: 72.7% MACE over next 6 weeks - Early Invasive Strategies Allergies: Allergies: Allergies Coded Allergies Type Severity Reaction Last Updated Verified Penicillins Allergy Intermediate Rash 04/17/18 Yes cephalexin Allergy Intermediate Rash 04/17/18 Yes codeine Allergy Intermediate 04/17/18 Yes Physical Exam: PE: Constitutional: Well developed, well nourished, no acute distress, non-toxic appearance. [] Eyes: PERRLA, EOMI, conjunctiva normal, no discharge. [] Cardiovascular: Regular rate and rhythm [] Lungs & Thorax: Bilateral breath sounds clear to auscultation [] Back: There is tenderness to palpation with palpable spasm noted from T12 on down throughout the right-sided lumbar paraspinal musculature. [] Extremities: No tenderness, no cyanosis, no clubbing, ROM intact, no edema. [] Neurologic: Alert and oriented X 3, no focal deficits noted. [] EKG: EKG: [] Radiology/Procedures: Radiology/Procedures: [] Course & Med Decision Making: Course & Med Decision Making Pertinent Labs and Imaging studies reviewed. (See chart for details) [] Tono Disclaimer: Tono Disclaimer: This electronic medical record was generated, in whole or in part, using a voice recognition dictation system. Departure Departure Impression: Primary Impression: Migraine Qualified Codes: G43.909 - Migraine, unspecified, not intractable, without status migrainosus Additional Impression: Back pain Qualified Codes: M54.5 - Low back pain Disposition: HOME, SELF-CARE Condition: STABLE Referrals: NO PCP (PCP) Patient Instructions: Back Pain, Adult, Migraine Headache Scripts Tramadol Hcl (TRAMADOL HCL) 50 Mg Tablet 50 MG PO Q6HRS PRN for PAIN, #12 TAB Prov: TAMARA AZAR Jr. DO 08/17/19 Orphenadrine Citrate (ORPHENADRINE CITRATE) 100 Mg Tablet.er 1 TAB PO BID PRN for MUSCLE SPASMS, #14 TAB Prov: TAMARA AZAR Jr. DO 08/17/19 Ondansetron (ONDANSETRON ODT) 4 Mg Tab.rapdis 1 TAB PO PRN Q6-8HRS PRN for NAUSEA, #15 TAB Prov: TAMARA AZAR Jr. DO 08/17/19 TAMARA AZAR Jr. DO August 17, 2019 18:44
[2019-08-17] MEDS ORDERED: diphenhydrAMINE HCL 25 MG CAPSULE PO ONE (18:45)
[2019-08-17] MEDS ORDERED: SUMAtriptan SUCC 6 MG/0.5 ML VIAL. SQ ONE (18:45)
[2019-08-17] MEDS ORDERED: METOCLOPRAMIDE 10 MG TABLET. PO ONE (18:45)
[2019-08-17] MEDS ORDERED: KETOROLAC 60 MG/2 ML VIAL. IM ONE (18:45)
[2019-08-17] MEDS ORDERED: ONDA4TAB12 PO (19:26)
[2019-08-17] MEDS ORDERED: ORPH100T PO (19:26)
[2019-08-17] MEDS ORDERED: TRAM50TA PO (19:26)
== END 2019-08-17 19:34 | disposition home or self-care (01) ==
LOC: ER 18:09
DX: G43.909 Migraine, unspecified, not intractable, without status migrainosus (principal); M54.5 Low back pain; M19.90 Unspecified osteoarthritis, unspecified site; F17.200 Nicotine dependence, unspecified, uncomplicated; Z88.0 Allergy status to penicillin; Z88.1 Allergy status to other antibiotic agents; Z88.5 Allergy status to narcotic agent
CPT/HCPCS: 96372; 99284; J1885; J3030; J8597; Q0163

== ENCOUNTER 2019-08-23 13:05 | Emergency (ER) | payer MEDICAID ==
[~2019-08-23] VITALS: Ht 165.1 cm; Wt 93.6 kg
[~2019-08-23 13:05] MED LIST changes: +ORPH100T PO; +TRAM50TA PO
[2019-08-23 13:32] VITALS: BP 151/84
--- NOTE | 2019-08-23 14:08 | RAD ---
EXAM: Left knee, 4 views; left hand, 3 views. HISTORY: Swelling and pain. COMPARISON: None. FINDINGS: Left knee: 4 views of the left knee are obtained. There is no fracture, dislocation or subluxation. There is no joint effusion. There is no radiodense foreign body. Left hand: 3 views of the left hand are obtained. There is no fracture, dislocation or subluxation. There is no radiodense foreign body. IMPRESSION: No acute osseous finding. Electronically signed by: Edna Kamara MD (08/23/2019 2:05 PM) [email or web address]
--- NOTE | 2019-08-23 14:33 | PHYS DOC ---
Past Medical History Past Medical History: Arthritis, Other Additional Past Medical Histor: scoliosis Past Surgical History: No Surgical History Smoking Status: Current Every Day Smoker Alcohol Use: None Drug Use: None General Adult EDM: Chief Complaint: KNEE INJURY HPI: HPI: Patient is a 24 year old female who presents to the ED today complaining of mild intermittent left knee pain with swelling as well as left hand pain with swelling, symptoms began 2 days ago. Patient denies any injury. Patient denies anything specifically exacerbating or relieving her pain. Review of Systems: Review of Systems: Constitutional: Denies fever or chills. [] Musculoskeletal: Reports left hand and left knee pain with swelling Integument: Denies rash. [] Neurologic: Denies headache, focal weakness or sensory changes. [] Psychiatric: Denies depression or anxiety. [] Heart Score: Risk Factors: Risk Factors: DM, Current or recent (<one month) smoker, HTN, HLP, family history of CAD, obesity. Risk Scores: Score 0 - 3: 2.5% MACE over next 6 weeks - Discharge Home Score 4 - 6: 20.3% MACE over next 6 weeks - Admit for Clinical Observation Score 7 - 10: 72.7% MACE over next 6 weeks - Early Invasive Strategies Allergies: Allergies: Allergies Coded Allergies Type Severity Reaction Last Updated Verified Penicillins Allergy Intermediate Rash 04/17/18 Yes cephalexin Allergy Intermediate Rash 04/17/18 Yes codeine Allergy Intermediate 04/17/18 Yes Physical Exam: PE: Constitutional: Well developed, well nourished, no acute distress, non-toxic appearance. [] Skin: Warm, dry, no erythema, no rash. [] Back: No tenderness, no CVA tenderness. [] Extremities: Left knee and left hand with no obvious deformity, no obvious edema or ecchymosis, full range of motion to the left knee and left hand. Adequate radial, median, ulnar sensation to the left hand. Negative Adonis sign negative Luther sign negative anterior posterior drawer sign to the left knee. +2 left pedal pulse. Cap refill less than 2 seconds to left toes and left fingers. Neurologic: Alert and oriented X 3, normal motor function, normal sensory function, no focal deficits noted. [] Psychologic: Affect normal, judgement normal, mood normal. [] Current Patient Data: Vital Signs: Vital Signs Date Time Temp Pulse Resp B/P (MAP) Pulse Ox O2 Delivery O2 Flow Rate FiO2 08/23/19 13:32 97.7 78 18 151/84 (106) 97 Room Air 97.7 EKG: EKG: [] Radiology/Procedures: Radiology/Procedures: []PROCEDURE: HAND LEFT 3V EXAM: Left knee, 4 views; left hand, 3 views. HISTORY: Swelling and pain. COMPARISON: None. FINDINGS: Left knee: 4 views of the left knee are obtained. There is no fracture, dislocation or subluxation. There is no joint effusion. There is no radiodense foreign body. Left hand: 3 views of the left hand are obtained. There is no fracture, dislocation or subluxation. There is no radiodense foreign body. IMPRESSION: No acute osseous finding. Electronically signed by: Elsi Kamara MD (08/23/2019 2:05 PM) [id number] DICTATED and SIGNED BY: ELSI KAMARA MD DATE: 08/23/191404 PROCEDURE: KNEE LEFT 4V EXAM: Left knee, 4 views; left hand, 3 views. HISTORY: Swelling and pain. COMPARISON: None. FINDINGS: Left knee: 4 views of the left knee are obtained. There is no fracture, dislocation or subluxation. There is no joint effusion. There is no radiodense foreign body. Left hand: 3 views of the left hand are obtained. There is no fracture, dislocation or subluxation. There is no radiodense foreign body. IMPRESSION: No acute osseous finding. Electronically signed by: Elsi Kamara MD (08/23/2019 2:05 PM) [email or web address] DICTATED and SIGNED BY: ELSI KAMARA MD DATE: 08/23/191404 Course & Med Decision Making: Course & Med Decision Making Pertinent Labs and Imaging studies reviewed. (See chart for details) This is a 24-year-old female patient presenting to the ED today with left hand and left knee pain with swelling that began 2 days ago, no known injury. Left hand and left knee x-rays interpreted by radiologist are negative for any acute findings, patient was discharged to home. Ice elevation encouraged. Je bandage was provided for comfort. Follow-up with orthopedic doctor in 1 to 2 weeks. Dragon Disclaimer: Dragon Disclaimer: This electronic medical record was generated, in whole or in part, using a voice recognition dictation system. Departure Departure Impression: Primary Impression: Knee pain, left Qualified Codes: M25.562 - Pain in left knee Additional Impression: Hand pain, left Disposition: HOME, SELF-CARE Condition: STABLE Referrals: NO PCP (PCP) PIPER RANGEL II, MD Follow-up in 1 to 2 weeks Patient Instructions: Knee Pain, [id number] Additional Instructions: Your left knee x-rays and left hand x-rays are negative for any acute findings, consider icing and elevating the affected extremities. Wear the Je bandages provided as tolerated as needed. You can take [id number] pain relievers a s needed for pain. Follow-up with the provided orthopedic doctor in 1 to 2 weeks. DEANGELO EVANS REHAB CONSULTANT August 23, 2019 14:33
== END 2019-08-23 14:48 | disposition home or self-care (01) ==
LOC: ER 13:05
DX: M25.562 Pain in left knee (principal); M79.642 Pain in left hand; R22.42 Localized swelling, mass and lump, left lower limb; R22.32 Localized swelling, mass and lump, left upper limb; F17.200 Nicotine dependence, unspecified, uncomplicated; Z88.0 Allergy status to penicillin; Z88.1 Allergy status to other antibiotic agents; Z88.5 Allergy status to narcotic agent
CPT/HCPCS: 73130; 73564; 99284

== ENCOUNTER 2019-08-30 14:20 | Emergency (ER) | payer MEDICAID ==
[~2019-08-30] VITALS: Ht 165.1 cm; Wt 95.8 kg
[2019-08-30] MEDS ORDERED: IV NORMAL SALINE 1000ML BAG 1,000 ML IV ONE (14:45)
[2019-08-30] MEDS ORDERED: KETOROLAC 30 MG/ML VIAL. IVP ONE (14:45)
[2019-08-30] MEDS ORDERED: diphenhydrAMINE 50 MG/ML VIAL IVP ONE (14:45)
[2019-08-30] MEDS ORDERED: PROCHLORPERAZINE 10 MG/2 ML VIAL. IV ONE (14:45)
[2019-08-30 14:48] LABS: BILIRUBIN,URINE NEGATIVE (NEG); CLARITY,URINE CLOUDY; COLOR,URINE YELLOW; NITRITE,URINE NEGATIVE (NEG); PROTEIN,URINE NEGATIVE (NEG-TRACE)
--- NOTE | 2019-08-30 14:51 | PHYS DOC ---
Past Medical History Past Medical History: Arthritis, Other Additional Past Medical Histor: scoliosis Past Surgical History: No Surgical History Smoking Status: Current Every Day Smoker Alcohol Use: None Drug Use: None General Adult EDM: Chief Complaint: HEADACHE HPI: HPI: Patient is a 24 year old female who presents with soa, nasal congestion, bodyaches, nausea since last night. Rates her pain 8 out of 10. Patient states she took both Tylenol and ibuprofen before coming to the ED. She does state that she is an every day smoker and she does have some asthma. She states her headache is not like a normal migraine. She states this headache goes from one side of her forehead to the other. She states at times she feels lightheaded. She denies chest pain, cough, diarrhea, vomiting, dysuria, abdominal pain, LOC, vision changes, numbness or tingling, focal weakness. Review of Systems: Review of Systems: Constitutional: fever or chills. [] HENT: nasal congestion or denies sore throat. [] Respiratory: Denies cough. +shortness of breath. [] GI: Denies abdominal pain.+ nausea, denies vomiting, bloody stools or diarrhea. [] Musculoskeletal: Bodyaches. Denies back pain or joint pain. [] Neurologic: headache, denies focal weakness or sensory changes. [] Heart Score: Risk Factors: Risk Factors: DM, Current or recent (<one month) smoker, HTN, HLP, family history of CAD, obesity. Risk Scores: Score 0 - 3: 2.5% MACE over next 6 weeks - Discharge Home Score 4 - 6: 20.3% MACE over next 6 weeks - Admit for Clinical Observation Score 7 - 10: 72.7% MACE over next 6 weeks - Early Invasive Strategies Current Medications: Current Medications Medications (Trade) Dose Ordered Sig/Antonette Start Time Stop Time Status Last Admin Dose Admin Diphenhydramine HCl (Benadryl) 25 mg 1X ONCE 08/30/19 14:45 08/30/19 14:46 Ketorolac Tromethamine (Toradol 30mg Vial) 30 mg 1X ONCE 08/30/19 14:45 08/30/19 14:46 Prochlorperazine Edisylate (Compazine) 10 mg 1X ONCE 08/30/19 14:45 08/30/19 14:46 Sodium Chloride 1,000 ml @ 1,000 mls/hr 1X ONCE 08/30/19 14:45 08/30/19 15:44 Allergies: Allergies: Allergies Coded Allergies Type Severity Reaction Last Updated Verified Penicillins Allergy Intermediate Rash 04/17/18 Yes cephalexin Allergy Intermediate Rash 04/17/18 Yes codeine Allergy Intermediate 04/17/18 Yes Physical Exam: PE: Constitutional: Well developed, well nourished, no acute distress, non-toxic appearance. [] HENT: Normocephalic, atraumatic, bilateral external ears normal, oropharynx moist, no oral exudates, nose normal. [] Eyes: PERRLA, EOMI, conjunctiva normal, no discharge. [] Neck: Normal range of motion, no tenderness, supple, no stridor. [] Cardiovascular:Heart rate regular rhythm, no murmur [] Lungs & Thorax: Bilateral breath sounds clear to auscultation [] Abdomen: Bowel sounds normal, soft, no tenderness, no masses, no pulsatile masses. [] Skin: Warm, dry, no erythema, no rash. [] Back: No tenderness, no CVA tenderness. [] Extremities: No tenderness, no cyanosis, no clubbing, ROM intact, no edema. [] Neurologic: Alert and oriented X 3, normal motor function, normal sensory function, no focal deficits noted. [] Psychologic: Affect normal, judgement normal, mood normal. Normal Physical Exam[] Current Patient Data: Labs: Laboratory Tests Test 08/30/19 14:32 POC Urine HCG, Qualitative Hcg negative (Negative) Vital Signs: Vital Signs Date Time Temp Pulse Resp B/P (MAP) Pulse Ox O2 Delivery O2 Flow Rate FiO2 08/30/19 14:34 98.0 95 16 142/94 (110) 97 Room Air 98.0 EKG: EKG: [] Radiology/Procedures: Radiology/Procedures: [] Impression: [facility] [address] [place] [address] IMAGING REPORT Signed PATIENT: REINA AVITIA ACCOUNT: [id number] : 1995 LOCATION: ER AGE: 24 SEX: F EXAM STATUS: REG ER ORD. PHYSICIAN: KLAUS FELDER APRN REASON: soa PROCEDURE: PORTABLE CHEST 1V Single AP view of the chest. Comparison: None. Indication: Shortness of air Findings: The heart is not enlarged. There is no pneumothorax or effusion. No air space or interstitial disease. Impression: 1. No acute cardiopulmonary process. Electronically signed by: Tal Lozano MD (08/30/2019 3:08 PM) [id number] DICTATED and SIGNED BY: TAL LOZANO MD DATE: 08/30/19 1508 Course & Med Decision Making: Course & Med Decision Making Pertinent Labs and Imaging studies reviewed. (See chart for details) Alert and oriented. Speaks in full clear sentences. Ambulatory with steady gait. PERRLA. Skin pink warm and dry. Vital signs within normal limits. Abdomen soft and nontender. Lungs are clear to auscultation all lobes. Afebrile. UTI. Patient is stable. Chest xray shows no signs of infection. [] Dragon Disclaimer: Dragon Disclaimer: This electronic medical record was generated, in whole or in part, using a voice recognition dictation system. Departure Departure Impression: Primary Impression: UTI (urinary tract infection) Qualified Codes: N39.0 - Urinary tract infection, site not specified; R31.9 - Hematuria, unspecified Disposition: 01 HOME, SELF-CARE Condition: STABLE Referrals: NO PCP (PCP) Patient Instructions: Urinary Tract Infection Additional Instructions: Follow up with primary care provider. Drink plenty of water and take medication with food. Take Tylenol for your pain. Take allergy medication to help dry up nasal secretions. [facility] Scripts Albuterol Sulfate (PROAIR HFA INHALER) 8.5 Gm Hfa.aer.ad 1 PUFF INH PRN Q6HRS PRN for SHORTNESS OF BREATH, #1 INHALER 0 Refills Prov: KLAUS FELDER APRN 08/30/19 Ondansetron (ONDANSETRON ODT) 4 Mg Tab.rapdis 1 TAB PO PRN Q6-8HRS, #16 TAB Prov: KLAUS FELDER APRN 08/30/19 Nitrofurantoin Monohyd/M-Cryst (MACROBID 100 MG CAPSULE) 100 Mg Capsule 1 CAP PO BID for 7 Days, #14 CAP 0 Refills Prov: KLAUS FELDER APRN 08/30/19 KLAUS FELDER APRN August 30, 2019 14:51
[2019-08-30 14:53] LABS: BARBITURATES NEG (NEG); BENZODIAZEPINES NEG (NEG); CANNABINOIDS NEG (NEG); COCAINE NEG (NEG); METHADONE NEG (NEG); OPIATES NEG (NEG); PHENCYCLIDINE NEG (NEG)
[2019-08-30 14:58] LABS: AMPHETAMINE/METHAMPHETAMINE NEG (NEG)
[2019-08-30 15:00] LABS: AMORPHOUS SEDIMENT,UR PRESENT /HPF; BACTERIA,URINE MODERATE /HPF (0-FEW); RBC,URINE 0 /HPF (0-2); SQUAMOUS EPITHELIAL CELL,UR MANY /LPF
--- NOTE | 2019-08-30 15:10 | RAD ---
Single AP view of the chest. Comparison: None. Indication: Shortness of air Findings: The heart is not enlarged. There is no pneumothorax or effusion. No air space or interstitial disease. Impression: 1. No acute cardiopulmonary process. Electronically signed by: Tal Simons MD (08/30/2019 3:08 PM) [id number]
[2019-08-30 15:28] LABS: INFLUENZA A PATIENT NEGATIVE (NEGATIVE); INFLUENZA B PATIENT NEGATIVE (NEGATIVE)
[2019-08-30] MEDS ORDERED: ALBUTEROL SULFATE 2.5 MG/3 ML NEBU. NEB ONE (15:30)
[2019-08-30] MEDS ORDERED: NITR100C62 PO (15:33)
[2019-08-30] MEDS ORDERED: ONDA4TAB12 PO (15:33)
[2019-08-30] MEDS ORDERED: ALBU2.5V8 INH (15:34)
[2019-08-30 15:39] LABS: BASO % 0 % (0-3); EOS # 0.1 x10^3/uL (0.0-0.7); EOS % 2 % (0-3); HEMATOCRIT 35.7 % (36.0-47.0); LYMPH # 2.1 x10^3/uL (1.0-4.8); LYMPH % 46 % (24-48); MEAN CORPUSCULAR HEMOGLOBIN 30 pg (25-35); MEAN CORPUSCULAR HGB CONC 34 g/dL (31-37); MEAN CORPUSCULAR VOLUME 90 fL (79-100); MONO # 0.4 x10^3/uL (0.0-1.1); MONO % 8 % (0-9); NEUT # 1.9 x10^3/uL (1.8-7.7); NEUT % 43 % (31-73); PLATELET COUNT 283 x10^3/uL (140-400); RED BLOOD COUNT 3.95 x10^6/uL (3.50-5.40); RED CELL DISTRIBUTION WIDTH 14.1 % (11.5-14.5); WHITE BLOOD COUNT 4.5 x10^3/uL (4.0-11.0)
[2019-08-30 15:53] LABS: CALCIUM 9.2 mg/dL (8.5-10.1); CREATININE 0.6 mg/dL (0.6-1.0); GFR 121.8; POTASSIUM 3.8 mmol/L (3.5-5.1)
[2019-08-30 16:02] VITALS: BP 106/62
[2019-08-30 16:02] LABS: ALBUMIN 3.5 g/dL (3.4-5.0); ALBUMIN/GLOBULIN RATIO 1.1 (1.0-1.7); TOTAL BILIRUBIN 0.1 mg/dL (0.2-1.0); TOTAL PROTEIN 6.7 g/dL (6.4-8.2)
== END 2019-08-30 16:10 | disposition home or self-care (01) ==
LOC: ER 14:20
DX: N39.0 Urinary tract infection, site not specified (principal); R31.9 Hematuria, unspecified; F17.200 Nicotine dependence, unspecified, uncomplicated; Z88.0 Allergy status to penicillin; Z88.1 Allergy status to other antibiotic agents
CPT/HCPCS: 36415; 71045; 80053; 80307; 81001; 81025; 83690; 85025; 87086; 87804; 94640; 96361; 96374; 96375; 99284; J0780; J1200; J7030; J7613

== ENCOUNTER 2020-03-07 15:28 | Emergency (ER) | payer MEDICAID ==
[~2020-03-07] VITALS: Ht 167.6 cm; Wt 95.0 kg
[~2020-03-07 15:28] MED LIST changes: +ALBU2.5V8 INH; +NITR100C62 PO
[2020-03-07 15:40] VITALS: BP 133/94
--- NOTE | 2020-03-07 15:53 | PHYS DOC ---
Past Medical History Past Medical History: Arthritis, Other Additional Past Medical Histor: scoliosis Past Surgical History: No Surgical History Smoking Status: Current Every Day Smoker Alcohol Use: None Drug Use: None General Adult EDM: Chief Complaint: EYE PROBLEMS HPI: HPI: Patient is a 25 year old female who presents with yesterday awoke with burning of the eye. She states she was using clear eye eyedrops [id number] of which was helping at first. She states this morning she awoke in the eye is slightly blurred. Patient did not bring her glasses and is not wearing any contacts and was unable to see the actual eye chart so it visual acuity could not be done. Patient rates her burning nonradiating pain 8 out of 10. Patient denies injury to the eye, headache, dizziness, itching, discharge from the eye, fever, light sensitivity. Review of Systems: Review of Systems: Constitutional: Denies fever or chills. [] Eyes: +Blurry change in visual acuity. +Burning of eye [] HENT: Denies nasal congestion or sore throat. [] Respiratory: Denies cough or shortness of breath. [] Cardiovascular: Denies chest pain or edema. [] GI: Denies abdominal pain, nausea, vomiting, bloody stools or diarrhea. [] : Denies dysuria. [] Musculoskeletal: Denies back pain or joint pain. [] Integument: Denies rash. [] Neurologic: Denies headache, focal weakness or sensory changes. [] Endocrine: Denies polyuria or polydipsia. [] Lymphatic: Denies swollen glands. [] Psychiatric: Denies depression or anxiety. [] Heart Score: Risk Factors: Risk Factors: DM, Current or recent (<one month) smoker, HTN, HLP, family history of CAD, obesity. Risk Scores: Score 0 - 3: 2.5% MACE over next 6 weeks - Discharge Home Score 4 - 6: 20.3% MACE over next 6 weeks - Admit for Clinical Observation Score 7 - 10: 72.7% MACE over next 6 weeks - Early Invasive Strategies Allergies: Allergies: Allergies Coded Allergies Type Severity Reaction Last Updated Verified Penicillins Allergy Intermediate Rash 04/17/18 Yes cephalexin Allergy Intermediate Rash 04/17/18 Yes codeine Allergy Intermediate 04/17/18 Yes Physical Exam: PE: Constitutional: Well developed, well nourished, no acute distress, non-toxic appearance. [] HENT: Normocephalic, atraumatic, bilateral external ears normal, oropharynx moist, no oral exudates, nose normal. [] Eyes: PERRLA, EOMI, conjunctiva normal, no discharge. [] Neck: Normal range of motion, no tenderness, supple, no stridor. [] Cardiovascular:Heart rate regular rhythm, no murmur [] Lungs & Thorax: Bilateral breath sounds clear to auscultation [] Abdomen: Bowel sounds normal, soft, no tenderness, no masses, no pulsatile masses. [] Skin: Warm, dry, no erythema, no rash. [] Back: No tenderness, no CVA tenderness. [] Extremities: No tenderness, no cyanosis, no clubbing, ROM intact, no edema. [] Neurologic: Alert and oriented X 3, normal motor function, normal sensory function, no focal deficits noted. [] Psychologic: Affect normal, judgement normal, mood normal. Normal Physical Exam[] EKG: EKG: [] Radiology/Procedures: Radiology/Procedures: [] Course & Med Decision Making: Course & Med Decision Making Pertinent Labs and Imaging studies reviewed. (See chart for details) See HPI. Ambulatory with a steady gait. PERRLA. Speaks in full complete sentences. Alert and oriented x4. Eye Exam Visual accuity: Unable to access Eye exam: PERRL, Extraocular muscles intact. No signs of ruptured globe. Sclera clear. Red reflex present. Foreign body: No foreign bodies seen with examination or with lid flip exam. Arben-pen: Arben-Pen at this facility is not working so unable to assess. Fluorescein test: Outer eye corneal abrasion. Anesthetic: Tetracaine Patient is given erythromycin ointment. She will follow-up with her eye doctor. [] Dragon Disclaimer: Tono Disclaimer: This electronic medical record was generated, in whole or in part, using a voice recognition dictation system. Departure Departure Impression: Primary Impression: Corneal abrasion, left Qualified Codes: S05.02XA - Injury of conjunctiva and corneal abrasion without foreign body, left eye, initial encounter Disposition: 01 DC HOME SELF CARE/HOMELESS Condition: STABLE Referrals: NO PCP (PCP) Patient Instructions: Eye - Corneal Abrasion Additional Instructions: Follow-up with your eye doctor. Use medication as prescribed. Scripts Erythromycin Base (Erythromycin) 1 Gm Oint...g. 1 GM OP QID for 10 Days, #1 MISC Prov: KLAUS FELDER APRN 03/07/20 KLAUS FELDER APRN Mar 07, 2020 15:53
[2020-03-07] MEDS ORDERED: TETRACAINE 0.5% OPHTH SOLUTION 4ML BOTTLE. OS ONE (16:00)
[2020-03-07] MEDS ORDERED: FLUORESCEIN OPHTH TEST STRIP. OS ONE (16:00)
[2020-03-07] MEDS ORDERED: ERYT1OIN6 OP (16:25)
== END 2020-03-07 16:45 | disposition home or self-care (01) ==
LOC: ER 15:28
DX: S05.02XA Injury of conjunctiva and corneal abrasion without foreign body, left eye, initial encounter (principal); M19.90 Unspecified osteoarthritis, unspecified site; F17.200 Nicotine dependence, unspecified, uncomplicated; Z88.0 Allergy status to penicillin; Z88.5 Allergy status to narcotic agent; Z88.1 Allergy status to other antibiotic agents; X58.XXXA Exposure to other specified factors, initial encounter; Y93.89 Activity, other specified; Y92.89 Other specified places as the place of occurrence of the external cause; Y99.8 Other external cause status
CPT/HCPCS: 99283

== ENCOUNTER 2020-04-14 14:37 | Emergency (ER) | payer MEDICAID ==
[~2020-04-14] VITALS: Ht 167.6 cm; Wt 93.0 kg
[~2020-04-14 14:37] MED LIST changes: +ERYT1OIN6 OP
[2020-04-14] MEDS ORDERED: KETOROLAC 60 MG/2 ML VIAL. IM ONE (18:15)
[2020-04-14] MEDS ORDERED: PROCHLORPERAZINE 10 MG/2 ML VIAL. IM ONE (18:15)
[2020-04-14] MEDS ORDERED: diphenhydrAMINE HCL 25 MG CAPSULE PO ONE (18:15)
--- NOTE | 2020-04-14 18:20 | PHYS DOC ---
Past Medical History Past Medical History: Arthritis, Other Additional Past Medical Histor: scoliosis Past Surgical History: No Surgical History Smoking Status: Current Every Day Smoker Alcohol Use: None Drug Use: None General Adult EDM: Chief Complaint: HEADACHE HPI: HPI: Patient is a 25 year old female who presents with headache intermittently for the last week. She is also had nasal congestion and nausea that started today. She rates her pain throbbing aching today a 5 out of 10. She states she is generalized headache. She states this is not the worst headache she is ever had. She states she is even having facial pain. She states that she has not taken any medications for her pain today. She states she has been taking NyQuil. She states she was exposed to Covid at work. She has a history of arthritis, migraines, smoker. Review of Systems: Review of Systems: Constitutional: Denies fever or chills. [] Eyes: Denies change in visual acuity. [] HENT: + nasal congestion or denies sore throat. [] Respiratory: Denies cough or shortness of breath. [] Cardiovascular: Denies chest pain or edema. [] GI: Denies abdominal pain, nausea, vomiting, bloody stools or diarrhea. [] : Denies dysuria. [] Musculoskeletal: Denies back pain or joint pain. [] Integument: Denies rash. [] Neurologic: + Generalized headache, denies focal weakness or sensory changes. [] Endocrine: Denies polyuria or polydipsia. [] Lymphatic: Denies swollen glands. [] Psychiatric: Denies depression or anxiety. [] Heart Score: Risk Factors: Risk Factors: DM, Current or recent (<one month) smoker, HTN, HLP, family history of CAD, obesity. Risk Scores: Score 0 - 3: 2.5% MACE over next 6 weeks - Discharge Home Score 4 - 6: 20.3% MACE over next 6 weeks - Admit for Clinical Observation Score 7 - 10: 72.7% MACE over next 6 weeks - Early Invasive Strategies Allergies: Allergies: Allergies Coded Allergies Type Severity Reaction Last Updated Verified Penicillins Allergy Intermediate Rash 04/17/18 Yes cephalexin Allergy Intermediate Rash 04/17/18 Yes codeine Allergy Intermediate 04/17/18 Yes Physical Exam: PE: Constitutional: Well developed, well nourished, no acute distress, non-toxic appearance. [] HENT: Normocephalic, atraumatic, bilateral external ears normal, oropharynx moist, no oral exudates, nose normal. [] Eyes: PERRLA, EOMI, conjunctiva normal, no discharge. [] Neck: Normal range of motion, no tenderness, supple, no stridor. [] Cardiovascular:Heart rate regular rhythm, no murmur [] Lungs & Thorax: Bilateral breath sounds clear to auscultation [] Abdomen: Bowel sounds normal, soft, no tenderness, no masses, no pulsatile masses. [] Skin: Warm, dry, no erythema, no rash. [] Back: No tenderness, no CVA tenderness. [] Extremities: No tenderness, no cyanosis, no clubbing, ROM intact, no edema. [] Neurologic: Alert and oriented X 3, normal motor function, normal sensory func tion, no focal deficits noted. [] Psychologic: Affect normal, judgement normal, mood normal. Normal physical exam [] Current Patient Data: Vital Signs: Vital Signs Date Time Temp Pulse Resp B/P (MAP) Pulse Ox O2 Delivery O2 Flow Rate FiO2 04/14/20 17:19 97.9 85 18 125/75 (92) 98 Room Air 97.9 EKG: EKG: [] Radiology/Procedures: Radiology/Procedures: [] Course & Med Decision Making: Course & Med Decision Making Pertinent Labs and Imaging studies reviewed. (See chart for details) COVID-19 CRITERIA: The patient was evaluated during the global COVID-19 pandemic, and that diagnosis was suspected/considered upon their initial presentation. Their evaluation, treatment and testing was consistent with c urrent guidelines for patients who present with complaints or symptoms that may be related to COVID-19. See HPI. Alert and oriented x4. Speaks in full complete sentences. Ambulatory to steady gait. Ihnbxa-pveo-khfanv is normal. NIH negative. Skin pink warm and dry. Vital signs within normal limits. Afebrile. Patient is given Compazine, Benadryl, Toradol in the ED. PERRLA. Patient denies vision changes, vomiting, abdominal pain, fever, numbness or tingling, focal weakness, chest pain, shortness of air, cough, dizziness, syncope. Lungs are clear to auscultation all lobes. After reexamining patient she states she is feeling much better. She is ready go home. Patient does have a urinary tract infection. [] Machelleon Disclaimer: Dragon Disclaimer: This electronic medical record was generated, in whole or in part, using a voice recognition dictation system. NIHSS Stroke Scale NIH Stroke Scale: NIH Stroke Scale Response (Comments) Value Level of Consciousness: 0 Alert/Responsive 0 LOC Questions: 0 Answers both correctly 0 LOC Commands: 0 Performs both tasks 0 Best Gaze: 0 Normal 0 Visual: 0 No visual loss 0 Facial Palsy: 0 Normal, symmetrical 0 Motor - Left Arm 0 No drift 0 Motor - Right Arm 0 No drift 0 Motor - Left Leg 0 No drift 0 Motor: Right Leg 0 No drift 0 Limb Ataxia: 0 Absent 0 Sensory: 0 No loss 0 Best Language: 0 Normal 0 Dysathria: 0 Normal 0 Extinction and Inattention: 0 Normal 0 Total 0 COVID-19 Patient Risks: Age 65 or older: No Sign of co-morbidity: Yes Exp to person + for COVID: Yes Exp to PUI: No Travel from affected area: No Lower respiratory symptoms: No Fever: No Other: Yes (headache, nausea) PPE Use: Full PPE with N95 mask or PAPR: Yes Departure Departure Impression: Primary Impression: Headache Qualified Codes: R51.9 - Headache, unspecified Additional Impressions: Nasal congestion Person under investigation for COVID-19 UTI (urinary tract infection) Qualified Codes: N39.0 - Urinary tract infection, site not specified Disposition: 01 DC HOME SELF CARE/HOMELESS Condition: STABLE Referrals: NO PCP (PCP) Patient Instructions: Headache and Allergies, Urinary Tract Infection Additional Instructions: Try taking Zyrtec or using Flonase nasal spray to help with sinus congestion. Take Tylenol or ibuprofen to help with your pain. Take antibiotic with food and as prescribed for the urinary tract infection. Drink plenty of fluids. Follow-up with primary care provider. You have been tested for or diagnosed with COVID-19. It is an infection caused by a new type of coronavirus. COVID-19 will cause cold-like or mild flu symptoms in most. It can cause more severe symptoms like problems breathing in some. There is no treatment for COVID-19. The body will clear the infection over time. Self-care will help to ease discomfort. Steps to Take: Self-Care Rest as needed. Healthy habits may help you feel better. Steps include: Choose healthy foods including fruits and vegetables. Drink water throughout the day. Get plenty of sleep each night. If you smoke, try to quit. It may ease breathing. Avoid alcohol. Keep Others Healthy The virus can spread to others. Droplets are released every time you sneeze or cough. The droplets can get into the mouth, nose, or eyes of people near you and lead to infection. To lower the chances of spreading COVID-19 to others: Stay at home until your doctor has said it is safe to leave. If you tested positive this will mean staying isolated until both of the following are true: At least 7 days have passed since the start of illness. You are free of fever for at least 72 hours without the use of medicine. During this time: - Avoid public areas, events, or transportation. Do not return to work or school until your doctor has said it is safe to do so. - Call ahead if you need to go to a medical center. Let them know you may have COVID-19. It will help them guide you where to go. They may also ask you to wear a facemask when you come to the office. - If you call for emergency medical services, let them know you may have COVID- 19. While at home: - Try to avoid close contact with others. Stay about 6 feet away. - If possible, spend most of your time in a separate room from others. - Use a face mask if you will be in close contact with others such as sharing a room or vehicle. - Have someone wipe down common surfaces in the home. Use household arbitrator every day on areas like doorknobs, counters, or sinks. - Cough or sneeze into a tissue. Throw the tissue away right after use. If a tissue is not available, cough or sneeze into your elbow. - Wash your hands often. Wash them after sneezing or coughing. Use soap and water and wash for at least 20 seconds. Alcohol based hand sleeping room cleaner can be used if soap and water is not available. - Do not prepare food for others. Avoid sharing personal items like forks, spoons, or toothbrushes. - Avoid close contact with pets while you are sick. There is no evidence of the virus passing to pets. This is a safety step until more is known about this virus. Isolation can be frustrating. Social interaction can help. Keep in touch with friends and family through phone and tech options. You can still interact with others in your home, just keep a safe distance of about 6 feet. Follow-up: Your doctors office will check in with you to see if there are any changes in your health. You may be asked to keep track of symptoms to share with them. They will also let you know when you are clear to be in public again. Problems to Look Out For: Contact your doctor if your recovery is not going as you expect. Get emergency care if you have problems such as: - Trouble breathing - Nonstop chest pain or pressure - Changes in awareness, confusion, or problems waking - Lips or face have bluish color - Worsening of symptoms If you think you have an emergency, call for emergency medical services right away. As taken from [facility] Scripts Nitrofurantoin Monohyd/M-Cryst (MACROBID 100 MG CAPSULE) 100 Mg Capsule 1 CAP PO BID for 7 Days, #14 CAP 0 Refills Prov: KLAUS FELDER UNBUNDLER 04/14/20 Methylprednisolone (MEDROL) 4 Mg Tab.ds.pk 1 PKG PO UD, #1 PKG Prov: KLAUS FELDER UNBUNDLER 04/14/20 KLAUS FELDER UNBUNDLER Apr 14, 2020 18:20
[2020-04-14 19:02] LABS: BILIRUBIN,URINE NEGATIVE (NEG); CLARITY,URINE CLEAR; COLOR,URINE YELLOW; NITRITE,URINE NEGATIVE (NEG); PROTEIN,URINE NEGATIVE (NEG-TRACE); UROBILINOGEN,URINE 0.2 mg/dL (0.2 mg/dL)
[2020-04-14 19:07] LABS: BACTERIA,URINE MANY /HPF (0-FEW); WBC,URINE >40 /HPF (0-4)
[2020-04-14] MEDS ORDERED: METH4TAB2 PO (19:51)
[2020-04-14] MEDS ORDERED: NITR100C62 PO (19:51)
[2020-04-14 20:00] VITALS: BP 124/84
--- NOTE | 2020-04-16 16:31 | NUR ---
IP: Informed pt of negative COVID results. Pt verbalized understanding.
== END 2020-04-14 20:05 | disposition home or self-care (01) ==
LOC: ER 14:37
DX: G43.909 Migraine, unspecified, not intractable, without status migrainosus (principal); N39.0 Urinary tract infection, site not specified; R09.81 Nasal congestion; Z20.828 Contact with and (suspected) exposure to other viral communicable diseases; F17.200 Nicotine dependence, unspecified, uncomplicated; Z88.0 Allergy status to penicillin; Z88.1 Allergy status to other antibiotic agents; Z88.5 Allergy status to narcotic agent
CPT/HCPCS: 81001; 81025; 87086; 96372; 99284; C9803; J0780; J1885; Q0163; U0003